=== PATIENT | female | born 1960 | race African-American/Black ===

== ENCOUNTER 2016-09-02 22:53 | Emergency (ER) | payer OTHER ==
--- NOTE | ~2016-09-02 | EKG ---
PATIENT: JENA STEWART UNIT #: [id number] Ventricular Rate: 85 BPM Atrial Rate: 85 BPM P-R Interval: 140 ms QRS Duration: 82 ms Q-T Interval: 390 ms QTC Calculation(Bezet): 464 ms P [place]: 55 degrees Calculated R [place]: 30 degrees Calculated T [place]: 48 degrees Diagnosis Line: Normal sinus rhythm Diagnosis Line: Normal ECG Diagnosis Line: No previous ECGs available Diagnosis Line: Confirmed by ANGELICA HERRERA MD ([id number]) on Diagnosis Line: 09/03/2016 10:09:19 PM INTERPRETING MD: AG
[~2016-09-02 22:53] MED LIST: FLEXERIL PO; HCTZ PO; IBUPROFEN PO; PREDNISONE PO
[2016-09-03 00:30] LABS: POC - CKMB <1.0 ng/mL (0.0-7.9); POC - TROPONIN <0.05 ng/mL (<=0.05)
[2016-09-03 00:43] LABS: URINE SOURCE CLEAN CATCH
[2016-09-03 00:49] LABS: BASOPHIL# 0.1 X10e3 (0-0.3); BASOPHIL% 0.6 % (0-2.5); EOSINOPHIL# 0.2 X10e3 (0-0.7); EOSINOPHIL% 1.7 % (0.0-7.0); HEMATOCRIT 39.5 % (35.0-45.0); LYMPHOCYTE# 5.6 X10e3 (1.0-3.5); LYMPHOCYTE% 39.1 % (17.0-45.0); MEAN CELL VOLUME 85.2 FL (83-96); MEAN CORPUSCULAR HEMOGLOBIN 28.1 PG (28-34); MEAN CORPUSCULAR HGB CONC 32.9 g/dL (30-36); MEAN PLATELET VOLUME 10.7 FL (6.5-11.5); MONOCYTE# 0.7 X10e3 (0-1.0); MONOCYTE% 4.6 % (3.0-12.0); NEUTROPHIL# 7.7 X10e3 (1.5-7.1); PLATELET COUNT 258 X10e3 (140-420); RED BLOOD COUNT 4.63 X10e (3.90-5.30); RED CELL DISTRIBUTION WIDTH 14.7 % (11.0-15.5); WHITE BLOOD COUNT 14.2 X10e3 (4.0-10.5)
[2016-09-03 00:50] LABS: URINE APPEARANCE CLEAR; URINE BILIRUBIN NEG (NEG); URINE BLOOD NEG (NEG); URINE COLOR YELLOW; URINE GLUCOSE NEG (NEG); URINE KETONE NEG (NEG); URINE LEUKOCYTE ESTERASE NEG (NEG); URINE NITRATE NEG (NEG); URINE PROTEIN NEG (NEG); URINE SPECIFIC GRAVITY 1.007 (1.003-1.035)
[2016-09-03 00:54] LABS: DIFF IND NO
[2016-09-03 00:55] LABS: CULTURE INDICATED? NO
[2016-09-03 01:09] LABS: INR 0.9; PARTIAL THROMBOPLASTIN TIME 26.6 SECONDS (23.5-31.3); PROTHROMBIN TIME (PATIENT) 9.9 SECONDS (9.6-11.5)
[2016-09-03 01:27] LABS: ALBUMIN SERUM 3.5 g/dL (3.5-5.0); BILIRUBIN,TOTAL 0.5 mg/dL (0.2-2.0); BUN/CREATININE RATIO 21.66; CALCIUM SERUM 9.3 mg/dL (8.4-10.2); CREATININE SERUM 0.6 mg/dL (0.6-1.4); GLOM FILT RATE Estimated 118.9 mL/min (>60); POTASSIUM 4.2 mmol/L (3.5-5.1); PROTEIN TOTAL SERUM 7.4 g/dL (6.0-8.3)
[2016-09-03 01:31] LABS: BILIRUBIN, DIRECT 0.1 mg/dL (0.0-0.2); BILIRUBIN,INDIRECT 0.4 mg/dL (0.0-0.9)
== END 2016-09-03 02:01 | disposition home or self-care (01) ==
LOC: CED 22:53
PROVIDERS: Emergency Medicine
DX: R42 Dizziness and giddiness (principal); I10 Essential (primary) hypertension; F17.200 Nicotine dependence, unspecified, uncomplicated; Z90.49 Acquired absence of other specified parts of digestive tract; Z88.8 Allergy status to other drugs, medicaments and biological substances
CPT/HCPCS: 36415; 80048; 80076; 81003; 82553; 84484; 85025; 85610; 85730; 93005; 96361; 96374; 96375; 99284; J1200; J2765

== ENCOUNTER 2016-09-10 00:26 | Emergency (ER) | payer OTHER ==
[2016-09-10] MEDS ORDERED: PRILOSEC PO (00:39)
[2016-09-10] MEDS ORDERED: FLEXERIL10 MG PO (00:39)
[2016-09-10] MEDS ORDERED: PRAVASTATIN SOD40 MG PO (00:40)
[2016-09-10] MEDS ORDERED: ZESTORETIC 20-1 EACH PO (00:40)
[2016-09-10] MEDS ORDERED: MEDROL DOSEPAK4 MG PO (00:40)
[2016-09-10] MEDS ORDERED: AUGMENTIN PO (00:41)
[2016-09-10] MEDS ORDERED: MEDI-MECLIZINE25 M1 PO (00:41)
[2016-09-10] MEDS ORDERED: IBUPROFEN PO (00:42)
[2016-09-10] MEDS ORDERED: LORTAB 7.5-3251 EACH PO (00:42)
== END 2016-09-10 02:00 | disposition left against medical advice (07) ==
LOC: CED 00:26
DX: Z53.21 Procedure and treatment not carried out due to patient leaving prior to being seen by health care provider (principal)